=== PATIENT | male | born 1980 | race African-American/Black ===

== ENCOUNTER 2016-11-24 23:07 | Emergency (ER) | payer OTHER ==
[~2016-11-24] VITALS: Ht 160 cm; Wt 72.6 kg
[~2016-11-24 23:07] MED LIST: ALBUTEROL INH; AUGMENTIN 875875 M1 PO; AUGMENTIN 875875 MG PO; AZITHROMYCIN 2250 MG PO; BACTRIM DS TAB1 EACH PO; BENADRYL ALLERG25 MG PO; DOXYCYCLINE 10100 MG PO; FLEXERIL PO; GUAIFENESIN-CODE5 ML PO; IBUPROFEN 600600 M1 PO; IBUPROFEN 800800 M1; IBUPROFEN 800800 M1 PO; IBUPROFEN 800800 MG PO; LEVAQUIN 500 M500 MG PO; MEDROL DOSPAK21 TAB PO; MOTRIN 600 MG600 M1 PO; MUCINEX DM TABL1 TA1 PO; MUPIROCIN15 GM TP; NORCO 5-325 TA1 EACH PO; NORFLEX100 MG PO; PEPCID40 MG PO; PERCOCET 5-3251 EACH PO; PREDNISONE 10 M10 M1 PO; PREDNISONE 20 M20 M1 PO; PREDNISONE 20 M20 MG PO; PREDNISONE50 MG PO; PROMETHAZINE-C120 ML PO; PROVENTIL; PROVENTIL HFA6.7 G1 INH; SUDAFED 12 HR120 MG PO; TESSALON PERLE100 MG PO; ULTRAM 50MG TAB50 MG PO; VENTOLIN HFA 1818 GM INH; VENTOLIN HFA INH8 GM IH; VENTOLIN17 GM INH; ZPAK PO
[2016-11-25] MEDS ORDERED: NORFLEX100 MG PO (00:16)
[2016-11-25] MEDS ORDERED: MOBIC7.5 MG PO (00:16)
[2016-11-25 01:12] VITALS: BP 124/87
== END 2016-11-25 01:12 | disposition home or self-care (01) ==
LOC: ER 23:07
DX: S39.012A Strain of muscle, fascia and tendon of lower back, initial encounter (principal); J45.909 Unspecified asthma, uncomplicated; F17.210 Nicotine dependence, cigarettes, uncomplicated; F15.10 Other stimulant abuse, uncomplicated; V89.2XXA Person injured in unspecified motor-vehicle accident, traffic, initial encounter; Y93.I9 Activity, other involving external motion; Y92.488 Other paved roadways as the place of occurrence of the external cause; Y99.8 Other external cause status